=== PATIENT | female | born 1935 | race Caucasian/White ===

== ENCOUNTER 2018-01-16 12:28 | Emergency (ER) | payer MEDICARE ==
[~2018-01-16 12:28] MED LIST: ALB0.5 INH; ALBU8.5H11 INH; CALC-762 PO; FLU20 PO; LEVO50TA80 PO; MULT-804 PO; VERS120 PO; [UNRECOGNIZED DRUG - CODE] PO
--- NOTE | 2018-01-16 12:29 | ER Report ---
History and Physical Time Seen By MD: 12:29 Hx. of Stated Complaint: dizziness HPI/ROS 82 year old h/o vertigo in the past. weakness felt off balance since monday. no fever chills cp sob leg swelling Allergies: Coded Allergies: No Known Drug Allergies (Verified , 01/16/18) Home Meds Active Scripts Meclizine Hcl (MECLIZINE HCL) 12.5 Mg Tablet, 25 MG PO BID for 10 Days, #20 Prov:GHANSHYAM ESTRADA 01/16/18 Aspirin (ASPIR 81) 81 Mg Tablet.dr, 81 MG PO QDAY, #30 TAB Prov:GHANSHYAM ESTRADA 01/16/18 Reported Medications Calcium Carbonate/Vitamin D3 (Calcium 500 + D Tablet) 1 Tab Tablet, 1 TAB PO, 0 Refills 06/01/09 Multivitamins (Multiple Vitamin) 1 Tab Tablet, 1 TAB PO, 0 Refills 06/01/09 Glucosamine Hcl/Chondr Beltre A Na (Glucosamine-Chondr Caplet) 1 Tab Tablet, 1 TAB PO, 0 Refills 06/01/09 Albuterol Sulfate (Albuterol Inh Conc) 2.5 Mg/0.5 Ml Nebu, 2.5 MG INH ONCE, 0 Refills DILUTE BEFORE USING 06/01/09 Albuterol Sulfate (Proventil Hfa) 8.5 Gm Aer.w.adap, 1 PUFF INH, 0 Refills 06/01/09 Verapamil Hcl (Isoptin Sr) 120 Mg Tablet.sa, 120 MG PO, 0 Refills 06/01/09 Levothyroxine Sodium (Levoxyl) 50 Mcg Tablet, 50 MCG PO, 0 Refills 06/01/09 Fluoxetine Hcl (Prozac) 20 Mg Cap, 20 MG PO QDAY, 0 Refills 06/01/09 Past Medical/Surgical History Hypothyroid, chronic headaches, irregular heart beat, vertigo, cervical cancer, depression, hysterectomy, cholecystectomy, hernia repair Reviewed Nurses Notes: Yes Hx Smoking: No Smoking Status: Never Smoker Exposure to Second Hand Smoke?: No Hx Substance Use Disorder: No Hx Alcohol Use: No Family History of: HTN Constitutional Vital Sign - Last 24 Hours 01/16/18 01/16/18 01/16/18 01/16/18 12:34 12:36 12:43 12:58 Pulse 103 94 ??? Resp 16 17 B/P (MAP) 156/99 156/99 (118) Pulse Ox 92 93 O2 Delivery Room Air 01/16/18 01/16/18 01/16/18 01/16/18 13:00 13:13 13:19 13:28 Pulse 92 84 Resp 16 8 B/P (MAP) ???/??? (9355) 135/71 (92) Pulse Ox 94 91 01/16/18 01/16/18 01/16/18 01/16/18 13:30 13:43 13:58 14:00 Pulse 87 78 Resp 11 13 B/P (MAP) 131/65 (87) 139/72 (94) Pulse Ox 94 94 01/16/18 01/16/18 01/16/18 01/16/18 14:13 14:18 14:30 14:33 Pulse 80 77 72 Resp 10 14 B/P (MAP) ???/??? (1435) Pulse Ox 92 01/16/18 01/16/18 01/16/18 01/16/18 14:48 15:00 15:03 15:18 Pulse ? B/P (MAP) ???/??? (6897) 01/16/18 01/16/18 01/16/18 01/16/18 15:30 15:33 15:45 15:48 Pulse ??? 75 B/P (MAP) ???/??? (5845) 170/79 (109) Pulse Ox 93 01/16/18 01/16/18 01/16/18 01/16/18 15:53 16:00 16:08 16:23 Pulse 77 75 75 B/P (MAP) 161/81 (107) Pulse Ox 90 92 93 01/16/18 16:30 B/P (MAP) 162/96 (118) Intake and Output 01/16/18 01/16/18 01/17/18 15:00 23:00 07:00 Intake Total 1000 ml Balance 1000 ml Physical Exam 82-year-old female GCS of 15 NIH is negative at this point pupils are equal reactive to light EOM intact cranial nerves II-12 grossly intact and has normocephalic atraumatic neck is supple no pain to palpation no JVD heart rate is regular no murmurs or gallops lungs clear to auscultation abdomen is soft moves all extremities. Peripheral pulses Medical Decision Making Data Points Result Diagram: 01/16/18 1247 01/16/18 1247 Laboratory Hematology Test 01/16/18 12:33 01/16/18 12:47 Urine Color Yellow Urine Clarity Clear Urine pH 6.0 pH (4.8-9.5) Urine Specific [place] 1.013 Urine Protein Negative mg/dL (NEGATIVE) Urine Glucose (UA) Negative mg/dL (NEGATIVE) Urine Ketones Negative mg/dL (NEGATIVE) Urine Blood Negative (NEGATIVE) Urine Nitrite Negative (NEGATIVE) Urine Bilirubin Negative (NEGATIVE) Urine Urobilinogen Negative mg/dL (0.2-1.9) Urine Leukocyte Esterase Trace (NEGATIVE) Urine RBC None /HPF (0-2/HPF) Urine WBC 2 /HPF (0-5/HPF) Urine Squamous Epithelial Cells Many /LPF (</=FEW) Urine Renal Epithelial Cells Few /LPF (NONE-FEW) Urine Bacteria Negative /HPF (NONE-FEW) Urine Mucus None /HPF (NONE-FEW) Red Blood Count 3.97 M/uL (4.17-5.56) Mean Corpuscular Volume 99.7 fL (80.0-96.0) Mean Corpuscular Hemoglobin 34.6 pg (26.0-33.0) Mean Corpuscular Hemoglobin Concent 34.6 g/dL (32.0-36.0) Red Cell Distribution Width 14.2 % (11.5-14.5) Mean Platelet Volume 8.5 fL (7.2-11.1) Neutrophils (%) (Auto) 59.8 % (39.4-72.5) Lymphocytes (%) (Auto) 28.8 % (17.6-49.6) Monocytes (%) (Auto) 10.1 % (4.1-12.4) Eosinophils (%) (Auto) 0.7 % (0.4-6.7) Basophils (%) (Auto) 0.6 % (0.3-1.4) Nucleated RBC Relative Count (auto) 0.0 /100WBC Neutrophils # (Auto) 4.0 K/uL (2.0-7.4) Lymphocytes # (Auto) 1.9 K/uL (1.3-3.6) Monocytes # (Auto) 0.7 K/uL (0.3-1.0) Eosinophils # (Auto) 0.0 K/uL (0.0-0.5) Basophils # (Auto) 0.0 K/uL (0.0-0.1) Nucleated RBC Absolute Count (auto) 0.00 K/uL Prothrombin Time 12.8 seconds (12.0-14.4) Prothromb Time International Ratio 0.96 Activated Partial Thromboplast Time 29 seconds (23-35) Sodium Level 130 mmol/L (137-145) Potassium Level 3.6 mmol/L (3.5-5.0) Chloride Level 97 mmol/L (98-107) Carbon Dioxide Level 25 mmol/L (22-31) Blood Urea Nitrogen 13 mg/dl (7-18) Creatinine 1.00 mg/dl (0.52-1.04) Glomerular Filtration Rate Calc 53.3 Random Glucose 120 mg/dl (75-110) Calcium Level 8.2 mg/dl (8.4-10.2) Magnesium Level 2.0 mg/dl (1.7-2.2) Total Bilirubin 0.5 mg/dl (0.2-1.3) Aspartate Amino Transf (AST/SGOT) 31 U/L (0-35) Alanine Aminotransferase (ALT/SGPT) 31 U/L (0-56) Alkaline Phosphatase 87 U/L (0-126) Troponin I < 0.012 ng/ml Total Protein 7.1 g/dl (6.3-8.2) Albumin 3.9 g/dl (3.5-5.0) Chemistry Test 01/16/18 12:33 01/16/18 12:47 Urine Color Yellow Urine Clarity Clear Urine pH 6.0 pH (4.8-9.5) Urine Specific [place] 1.013 Urine Protein Negative mg/dL (NEGATIVE) Urine Glucose (UA) Negative mg/dL (NEGATIVE) Urine Ketones Negative mg/dL (NEGATIVE) Urine Blood Negative (NEGATIVE) Urine Nitrite Negative (NEGATIVE) Urine Bilirubin Negative (NEGATIVE) Urine Urobilinogen Negative mg/dL (0.2-1.9) Urine Leukocyte Esterase Trace (NEGATIVE) Urine RBC None /HPF (0-2/HPF) Urine WBC 2 /HPF (0-5/HPF) Urine Squamous Epithelial Cells Many /LPF (</=FEW) Urine Renal Epithelial Cells Few /LPF (NONE-FEW) Urine Bacteria Negative /HPF (NONE-FEW) Urine Mucus None /HPF (NONE-FEW) White Blood Count 6.7 k/uL (4.5-11.0) Red Blood Count 3.97 M/uL (4.17-5.56) Hemoglobin 13.7 g/dL (12.0-16.0) Hematocrit 39.6 % (34.0-47.0) Mean Corpuscular Volume 99.7 fL (80.0-96.0) Mean Corpuscular Hemoglobin 34.6 pg (26.0-33.0) Mean Corpuscular Hemoglobin Concent 34.6 g/dL (32.0-36.0) Red Cell Distribution Width 14.2 % (11.5-14.5) Platelet Count 264 K/uL (150-450) Mean Platelet Volume 8.5 fL (7.2-11.1) Neutrophils (%) (Auto) 59.8 % (39.4-72.5) Lymphocytes (%) (Auto) 28.8 % (17.6-49.6) Monocytes (%) (Auto) 10.1 % (4.1-12.4) Eosinophils (%) (Auto) 0.7 % (0.4-6.7) Basophils (%) (Auto) 0.6 % (0.3-1.4) Nucleated RBC Relative Count (auto) 0.0 /100WBC Neutrophils # (Auto) 4.0 K/uL (2.0-7.4) Lymphocytes # (Auto) 1.9 K/uL (1.3-3.6) Monocytes # (Auto) 0.7 K/uL (0.3-1.0) Eosinophils # (Auto) 0.0 K/uL (0.0-0.5) Basophils # (Auto) 0.0 K/uL (0.0-0.1) Nucleated RBC Absolute Count (auto) 0.00 K/uL Prothrombin Time 12.8 seconds (12.0-14.4) Prothromb Time International Ratio 0.96 Activated Partial Thromboplast Time 29 seconds (23-35) Glomerular Filtration Rate Calc 53.3 Calcium Level 8.2 mg/dl (8.4-10.2) Magnesium Level 2.0 mg/dl (1.7-2.2) Total Bilirubin 0.5 mg/dl (0.2-1.3) Aspartate Amino Transf (AST/SGOT) 31 U/L (0-35) Alanine Aminotransferase (ALT/SGPT) 31 U/L (0-56) Alkaline Phosphatase 87 U/L (0-126) Troponin I < 0.012 ng/ml Total Protein 7.1 g/dl (6.3-8.2) Albumin 3.9 g/dl (3.5-5.0) Coagulation Test 01/16/18 12:47 Prothrombin Time 12.8 seconds Prothromb Time International Ratio 0.96 Activated Partial Thromboplast Time 29 seconds Urinalysis Test 01/16/18 12:33 Urine Color Yellow Urine Clarity Clear Urine pH 6.0 pH (4.8-9.5) Urine Specific [place] 1.013 Urine Protein Negative mg/dL (NEGATIVE) Urine Glucose (UA) Negative mg/dL (NEGATIVE) Urine Ketones Negative mg/dL (NEGATIVE) Urine Blood Negative (NEGATIVE) Urine Nitrite Negative (NEGATIVE) Urine Bilirubin Negative (NEGATIVE) Urine Urobilinogen Negative mg/dL (0.2-1.9) Urine Leukocyte Esterase Trace (NEGATIVE) Urine RBC None /HPF (0-2/HPF) Urine WBC 2 /HPF (0-5/HPF) Urine Squamous Epithelial Cells Many /LPF (</=FEW) Urine Renal Epithelial Cells Few /LPF (NONE-FEW) Urine Bacteria Negative /HPF (NONE-FEW) Urine Mucus None /HPF (NONE-FEW) EKG/Imaging EKG Interpretation EKG at 1238 normal sinus rhythm ventricular rate 97 QTCs 431 Imaging FACILITY: [facility] [place] PATIENT NAME: Sandra James : 1935 MR: [id number] V: [id number] EXAM DATE: ORDERING PHYSICIAN: GHANSHYAM ESTRADA [place]CHNOLOGIST: [place] [facility] [place] : 1935 Visit/Account:[id number] Date of Sevice: 01/16/[address] scan without contrast COMPARISONS: None ADDITIONAL PERTINENT HISTORY: Dizziness TECHNIQUE: Multiple axial images were obtained from the skull base to the vertex without IV contrast. One of the following dose optimization techniques was utilized in the performance of this exam: Automated exposure control; adjustment of the mA and/or kV according to the patient's size; or use of an iterative reconstruction technique. Specific details can be referenced in the facility's radiology CT exam operational policy. FINDINGS: Midline shift: Negative Ventricles: Mild enlargement of the lateral and third ventricles. Brain parenchyma: Patchy hypoattenuation within the periventricular and subcortical white matter, nonspecific but likely representing small vessel ischemic change on a chronic basis. No intraparenchymal hemorrhage. Extra-axial spaces: Mild cerebral atrophy. Intracranial vasculature: Cavernous internal carotid and distal vertebral artery calcifications. Otherwise negative Osseous structures: Negative Paranasal sinuses and mastoid air cells: Negative Surrounding soft tissues and orbits: Negative IMPRESSION: 1. Age related changes as described above. 2. No evidence of acute intracranial pathology. Report Dictated By: Eros Kamara MD at 01/16/2018 1:13 PM Report E-Signed By: Eros Kamara MD at 01/16/2018 1:16 PM WSN:[id number] ED Course/Re-evaluation Clinical Indication for ER IV: Hydration ED Course negative ct head cta head and neck and mri head, meclizine 25 mg orally once. feels better after treatment. will start on a daily baby aspirin and give her meclizine for recurrent vertigo Re-evaluation negative w/u other than na 130. Decision to Disposition Date: Jan 16, 2018 Decision to Disposition Time: 15:03 Depart Departure Latest Vital Signs Vital Signs Date Time Temp Pulse Resp B/P (MAP) Pulse Ox O2 Delivery O2 Flow Rate FiO2 01/16/18 16:30 162/96 (118) 01/16/18 16:23 75 93 01/16/18 14:18 14 01/16/18 12:34 Room Air Impression: Primary Impression: Vertigo Additional Impression: Hyponatremia Condition: Improved Disposition: HOME OR SELF-CARE Referrals: SAMANTHA JADE (PCP) 2 Days New Scripts Meclizine Hcl (MECLIZINE HCL) 12.5 Mg Tablet 25 MG PO BID for 10 Days, #20 Prov: GHANSHYAM ESTRADA 01/16/18 Aspirin (ASPIR 81) 81 Mg Tablet.dr 81 MG PO QDAY, #30 TAB Prov: GHANSHYAM ESTRADA 01/16/18 Patient Instructions: Hyponatremia (ED), Vertigo (DC) Additional Instructions: you had a ct head, cta head and neck, mri brain and these were all read as negative today. start taking a baby aspirin daily, meclizine 25 mg twice daily as needed for dizziness, use a little extra salt in your diet this week, see your doctor for follow up Problem Qualifiers GHANSHYAM ESTRADA Jan 16, 2018 12:29
[2018-01-16] MEDS ORDERED: NS(*) 0.9% 1000 ML BAG 1,000 ML IV ONE (12:34)
--- NOTE | 2018-01-16 12:41 | EKG ---
FACILITY: [facility] - [place] PATIENT NAME: THEE ROBERT : [id number] MR: [id number] V: [id number] EXAM DATE: ORDERING PHYSICIAN: GHANSHYAM ESTRADA TECHNOLOGIST: DIANA Wright Reason : Blood Pressure : / mmHG Vent. Rate : 097 BPM Atrial Rate : 097 BPM P-R Int : 128 ms QRS Dur : 084 ms QT Int : 340 ms P-R-T Axes : 065 063 037 degrees QTc Int : 431 ms Normal sinus rhythm No ST-T abnormalities No previous ECGs available Confirmed by EMMA DE SANTIAGO ([id number]) on 01/16/2018 4:15:58 PM Referred By: SEAN Confirmed By:EMMA DE SANTIAGO
[2018-01-16 12:55] LABS: PLATELET COUNT, AUTOMATED 264 K/uL (150-450)
[2018-01-16 13:05] LABS: INR 0.96
--- NOTE | 2018-01-16 13:13 | RADIOLOGY IMAGING REPORT ---
FACILITY: [facility] PATIENT NAME: Sandra James : 1935 MR: [id number] V: [id number] EXAM DATE: ORDERING PHYSICIAN: GHANSHYAM ESTRADA TECHNOLOGIST: Location: [facility] Patient: Sandra James : 1935 Visit/Account:[id number] Date of Sevice: 01/16/2018 CHEST, 1 view, portable at 1242 hours History: Dizziness COMPARISON: 06/01/2009 FINDINGS: Heart size is normal. Central pulmonary vasculature is nondistended. Normal size thoracic aorta. Lungs are expanded, and clear of infiltrate and atelectasis. No pleural fluid collections or pneumot horax. Bones are unremarkable. IMPRESSION: No radiographic evidence of an acute chest process. Report Dictated By: Lori Swift MD at 01/16/2018 1:05 PM Report E-Signed By: Lori Swift MD at 01/16/2018 1:10 PM WSN:[id number]
--- NOTE | 2018-01-16 13:21 | RADIOLOGY IMAGING REPORT ---
FACILITY: [facility] - [place] PATIENT NAME: Sandra James : 1935 MR: [id number] V: [id number] EXAM DATE: ORDERING PHYSICIAN: GHANSHYAM ESTRADA TECHNOLOGIST: Location: [facility] - [place] Patient: Sandra James : 1935 Visit/Account:[id number] Date of Sevice: 01/16/[address] scan without contrast COMPARISONS: None ADDITIONAL PERTINENT HISTORY: Dizziness TECHNIQUE: Multiple axial images were obtained from the skull base to the vertex without IV contrast . One of the following dose optimization techniques was utilized in the performance of this exam: Aut omated exposure control; adjustment of the mA and/or kV according to the patient's size; or use of an iterative reconstruction technique. Specific details can be referenced in the facility's radiology CT exam operational policy. FINDINGS: Midline shift: Negative Ventricles: Mild enlargement of the lateral and third ventricles. Brain parenchyma: Patchy hypoattenuation within the periventricular and subcortical white matter, no nspecific but likely representing small vessel ischemic change on a chronic basis. No intraparenchyma l hemorrhage. Extra-axial spaces: Mild cerebral atrophy. Intracranial vasculature: Cavernous internal carotid and distal vertebral artery calcifications. Oth erwise negative Osseous structures: Negative Paranasal sinuses and mastoid air cells: Negative Surrounding soft tissues and orbits: Negative IMPRESSION: 1. Age related changes as described above. 2. No evidence of acute intracranial pathology. Report Dictated By: Eros Kamara MD at 01/16/2018 1:13 PM Report E-Signed By: Eros Kamara MD at 01/16/2018 1:16 PM WSN:[id number]
[2018-01-16] MEDS ORDERED: methylPREDNIS SUCC 125 MG/2ML IVP ONE (14:35)
[2018-01-16] MEDS ORDERED: diphenhydrAMINE 50 MG/ML VIAL IVP ONE (14:35)
[2018-01-16] MEDS ORDERED: IOPAMIDOL 76% 100 ML INFUS BTL 100 ML ONE (14:37)
[2018-01-16] MEDS ORDERED: NS 0.9% 25 ML BAG 50 ML ONE (14:38)
--- NOTE | 2018-01-16 15:33 | RADIOLOGY IMAGING REPORT ---
FACILITY: [facility] [place] PATIENT NAME: Sandra James : 1935 MR: [id number] V: [id number] EXAM DATE: ORDERING PHYSICIAN: GHANSHYAM ESTRADA TECHNOLOGIST: Location: [facility] - [place] Patient: Sandra James : 1935 Visit/Account:[id number] Date of Sevice: 01/16/2018 BRAIN W/O CONTRAST Comparisons: Brain MRI with and without contrast dated September 30, 2016 Additional pertinent history: Dizziness TECHNIQUE: Multiplanar, multisequence brain MRI was performed without gadolinium contrast. FINDINGS: Sagittal midline structures and craniocervical junction: Negative. Midline shift: None. Ventricles: Mild enlargement of the lateral and third ventricles. Otherwise negative Brain parenchyma: Diffusion weighted imaging: Negative. Gradient sequence: Negative. T2 weighted FLAIR images: Scattered foci of abnormal increased T2 signal within the periventricular and subcortical white matter, nonspecific but likely representing small vessel ischemic change on a chronic basis. Extra-axial spaces: Mild cerebral atrophy. Dural venous sinuses and major arterial flow voids: Negative. Mastoid air cells and paranasal sinuses: Negative. Surrounding soft tissues and orbits: Negative. Impression: 1. Age related changes as described above. 2. No evidence of acute intracranial pathology. Report Dictated By: Eros Kamara MD at 01/16/2018 3:27 PM Report E-Signed By: Eros Kamara MD at 01/16/2018 3:30 PM WSN:[id number]
[2018-01-16] MEDS ORDERED: MECLIZINE HCL 25 MG TAB PO ONE (16:00)
--- NOTE | 2018-01-16 16:19 | RADIOLOGY IMAGING REPORT ---
FACILITY: [facility] PATIENT NAME: Sandra James : 1935 MR: [id number] V: [id number] EXAM DATE: ORDERING PHYSICIAN: GHANSHYAM ESTRADA TECHNOLOGIST: Location: [facility] Patient: Sandra James : 1935 Visit/Account:[id number] Date of Sevice: 01/16/2018 CTA of the head and neck with and without contrast CTA of the neck with and without contrast: Comparisons: None Additional pertinent history: Dizziness TECHNIQUE: Multiple axial images were obtained from the superior mediastinum through the mid portion of the brain during the continuous infusion of iodinated contrast. 2-D and 3-D reformatted images w ere obtained off the axial source data. Degrees of stenosis of the cervical internal carotid arterie s were obtained using NASCET criteria. One of the following dose optimization techniques was utilize d in the performance of this exam: Automated exposure control; adjustment of the mA and/or kV accordi ng to the patient's size; or use of an iterative reconstruction technique. Specific details can be referenced in the facility's radiology CT exam operational policy. CONTRAST: 100 mL of Isovue-370 FINDINGS: Thoracic aortic arch/origins of the great vessels: Negative Vertebral arteries: Codominant vertebral arteries which have a normal appearance. Common carotid arteries: Negative Carotid artery bifurcations: Mild calcified atherosclerotic plaque at the bifurcations of both commo n carotid arteries. Cervical internal carotid arteries: Negative Surrounding soft tissues: Negative Osseous structures: Mild spondylitic change involving the cervical spine. No acute appearing bony ab normalities. Lung apices: Negative IMPRESSION: 1. Minimal atherosclerotic disease of the arterial vasculature of the neck. 2. No significant stenosis noted involving the arterial vasculature of the neck. CTA of the head with and without contrast: COMPARISONS: None ADDITIONAL PERTINENT HISTORY: Dizziness Technique: Multiple axial images were obtained from the skull base to the vertex during the continuou s infusion of IV contrast. 2-D and 3-D reformatted were obtained off the axial source data. One of the following dose optimization techniques was utilized in the performance of this exam: autom ated exposure control; adjustment of the mA and/or kA according to patient size; or use of iterative reconstruction technique. Specific details can be referenced in the facility?s radiology CT exam oper ational policy. CONTRAST: 100 mL of Isovue-370 FINDINGS: Vascular variants: None Visualized vertebrobasilar system: Negative Distal internal carotid arteries: Mild cavernous internal carotid artery calcifications. Otherwise ne gative Internal carotid artery bifurcation: Negative A1 and M1 segments: Negative A2 and M2 segments: Negative Anterior communicating artery: Negative P1 segments: Negative Brain parenchyma: Negative Osseous structures: Negative Visualized paranasal sinuses and mastoid air cells: Negative IMPRESSION: 1. Minimal calcified atherosclerotic plaque involving the cavernous internal carotid arteries. 2. No evidence of significant stenosis noted involving the arterial vasculature of the head. 3. No acute intracranial pathology noted. Report Dictated By: Eros Kamara MD at 01/16/2018 4:09 PM Report E-Signed By: Eros Kamara MD at 01/16/2018 4:16 PM WSN:[id number]
--- NOTE | 2018-01-16 16:19 | RADIOLOGY IMAGING REPORT ---
FACILITY: [facility] PATIENT NAME: Sandra James : 1935 MR: [id number] V: [id number] EXAM DATE: ORDERING PHYSICIAN: GHANSHYAM ESTRADA TECHNOLOGIST: Location: [facility] Patient: Sandra James : 1935 Visit/Account:[id number] Date of Sevice: 01/16/2018 CTA of the head and neck with and without contrast CTA of the neck with and without contrast: Comparisons: None Additional pertinent history: Dizziness TECHNIQUE: Multiple axial images were obtained from the superior mediastinum through the mid portion of the brain during the continuous infusion of iodinated contrast. 2-D and 3-D reformatted images w ere obtained off the axial source data. Degrees of stenosis of the cervical internal carotid arterie s were obtained using NASCET criteria. One of the following dose optimization techniques was utilize d in the performance of this exam: Automated exposure control; adjustment of the mA and/or kV accordi ng to the patient's size; or use of an iterative reconstruction technique. Specific details can be referenced in the facility's radiology CT exam operational policy. CONTRAST: 100 mL of Isovue-370 FINDINGS: Thoracic aortic arch/origins of the great vessels: Negative Vertebral arteries: Codominant vertebral arteries which have a normal appearance. Common carotid arteries: Negative Carotid artery bifurcations: Mild calcified atherosclerotic plaque at the bifurcations of both commo n carotid arteries. Cervical internal carotid arteries: Negative Surrounding soft tissues: Negative Osseous structures: Mild spondylitic change involving the cervical spine. No acute appearing bony ab normalities. Lung apices: Negative IMPRESSION: 1. Minimal atherosclerotic disease of the arterial vasculature of the neck. 2. No significant stenosis noted involving the arterial vasculature of the neck. CTA of the head with and without contrast: COMPARISONS: None ADDITIONAL PERTINENT HISTORY: Dizziness Technique: Multiple axial images were obtained from the skull base to the vertex during the continuou s infusion of IV contrast. 2-D and 3-D reformatted were obtained off the axial source data. One of the following dose optimization techniques was utilized in the performance of this exam: autom ated exposure control; adjustment of the mA and/or kA according to patient size; or use of iterative reconstruction technique. Specific details can be referenced in the facility?s radiology CT exam oper ational policy. CONTRAST: 100 mL of Isovue-370 FINDINGS: Vascular variants: None Visualized vertebrobasilar system: Negative Distal internal carotid arteries: Mild cavernous internal carotid artery calcifications. Otherwise ne gative Internal carotid artery bifurcation: Negative A1 and M1 segments: Negative A2 and M2 segments: Negative Anterior communicating artery: Negative P1 segments: Negative Brain parenchyma: Negative Osseous structures: Negative Visualized paranasal sinuses and mastoid air cells: Negative IMPRESSION: 1. Minimal calcified atherosclerotic plaque involving the cavernous internal carotid arteries. 2. No evidence of significant stenosis noted involving the arterial vasculature of the head. 3. No acute intracranial pathology noted. Report Dictated By: Eros Kamara MD at 01/16/2018 4:09 PM Report E-Signed By: Eros Kamara MD at 01/16/2018 4:16 PM WSN:[id number]
[2018-01-16] MEDS ORDERED: ASPI-1471 PO (16:26)
[2018-01-16] MEDS ORDERED: MECL12.5 PO (16:26)
[2018-01-16 16:30] VITALS: BP 162/96
[2018-01-16] MEDS ORDERED: hydrOXYzine 25 MG TAB TH 2 TAB/BOTTLE PO ONE (21:50)
== END 2018-01-16 16:46 | disposition home or self-care (01) ==
LOC: ER 12:35
DX: E87.1 Hypo-osmolality and hyponatremia (principal); R42 Dizziness and giddiness
CPT/HCPCS: 36416; 70450; 70496; 70498; 70551; 71045; 81001; 82948; 83735; 84484; 85025; 85610; 85730; 93005; 96361; 96374; 96375; 99285; J1200; J2930; J7030; J8597; Q9967; 82040; 82247; 82310; 82374; 82435; 82565; 82947; 84075; 84132; 84155; 84295; 84450; 84460; 84520

== ENCOUNTER → 2018-03-09 | Outpatient (CLI) | payer MEDICARE ==
[~2018-03-09] MED LIST changes: +ASPI-1471 PO; +MECL12.5 PO
--- NOTE | 2018-03-09 16:24 | RADIOLOGY IMAGING REPORT ---
FACILITY: [facility] PATIENT NAME: Sandra James : 1935 MR: [id number] V: [id number] EXAM DATE: ORDERING PHYSICIAN: SAMANTHA JADE TECHNOLOGIST: Location: [facility] - [place] Patient: Sandra James : 1935 Visit/Account:[id number] Date of Sevice: 03/09/2018 EXAMINATION: PA and Lateral Chest 03/09/2018 11:00 AM HISTORY: Cough, asthma COMPARISON: 30/09/2017 FINDINGS: Cardiomediastinal contours: Stable heart size is unchanged mediastinal contours. Aorta is atheroscle rotic. Lungs and pleura: Lungs are hyperinflated with flattened hemidiaphragms. No acute pulmonary or pleur al process. Bones/soft tissues: Moderate wedging at T8. This was not present on chest CT 12/17/2017. IMPRESSION: 1. Hyperinflated lungs may indicate COPD. 2. Moderate T8 vertebral wedging which is new since December. Report Dictated By: Nomi Whiting MD at 03/09/2018 4:16 PM Report E-Signed By: Nomi Whiting MD at 03/09/2018 4:19 PM WSN:[id number]
== END ==
LOC: RAD 10:51
PROVIDERS: ATTEND Nurse Practitioner Psychiatric/Mental Health
DX: S22.060A Wedge compression fracture of T7-T8 vertebra, initial encounter for closed fracture (principal); R05 Cough
CPT/HCPCS: 71046